=== PATIENT | male | born 1950 | race Caucasian/White ===

== ENCOUNTER → 2024-09-23 | Outpatient (CLI) | payer OTHER ==
[~2024-09-23] MED LIST: REGADENOSON 0.4 MG/5 ML PF SYG IVP ONE
--- NOTE | 2024-09-24 09:24 | HMCSR ---
APPROVED REPORT Height: 5 ft 11in Weight: 175 lbs TEST INDICATIONS Aortic Valve Disease, OTHER CHEST PAIN The imaging protocol used to acquire images was Rest Tc-99m/stress Tc-99m 1 day Consent: The procedure was explained and understood by the patient. Informerd consent was witnessed Annmarie KATZ RN First, low dose rest was performed then high dose stress. RESTING DATA: The resting ekg shows: NSR with LAFB Rest SPECT myocardial perfusion imaging was performed in supine position minutes following the intra venous injection of 13.5 mCi of Tc-99 Sestamibi. Time of rest injection: 08:55: Date: 09/23/2024 PHARMACOLOGIC STRESS: Pharmacologic stress test was performed by injecting regadenoson 0.4 mg IV push followed by the intra venous injection of 32 mCi of Tc-99 Sestamibi. Time of stress injection: 11:14: Date: 09/23/2024 Heart Rate at time of stress injection: 64 bpm. The images were gated to evaluate regional wall motion and calculate left ventricular ejection fracti on. STRESS DETAILS Reason for Termination: Infusion complete Stress Symptoms: Dyspnea Max HR Achieved: 83 bpm % of APMHR Achieved: 68 Max Blood Pressure: 164/69 mmHg Stress ECG: NSR with LAFB Arrhythmia: No. ST Change: No. Study quality was good. Lung uptake was Normal. Artifact: No artifact LEFT VENTRICLE Size: The left ventricular size is normal. Systolic Function:The left ventricular systolic function is hyperdynamic. Wall Motion: No regional wall motion abnormalities noted. The left ventricular ejection fraction was calculated to be 74%.TID = 1.25. LV PERFUSION The rest and stress images show normal perfusion. RV Size/Shape Not visualized. IMPRESSION Normal pharmacologic nuclear stress test. Diseased Vessels: Normal Global LV Function: Normal Stress ECG Summary: Normal LV Perfusion Summary: Normal LV Viability Summary: Normal Conclusion Rest and stress show normal perfusion. Normal LV systolic function No ischemic ECG changes
== END | disposition home or self-care (01) ==
LOC: RAH 08:06
PROVIDERS: ATTEND Internal Medicine Cardiovascular Disease
DX: I44.4 Left anterior fascicular block (principal); R07.89 Other chest pain; I35.9 Nonrheumatic aortic valve disorder, unspecified
CPT/HCPCS: 78452; 93017; J2785; A9500 ×2